=== PATIENT | female | born 1985 | race Two or more races ===

== ENCOUNTER → 2020-07-29 | Outpatient (CLI) | payer SELFPAY ==
[~2020-07-29] MED LIST: FOLI0.8C PO; HYDR25TA PO; PREN1TAB58 PO
== END ==
LOC: LAB 14:09
PROVIDERS: ATTEND Obstetrics & Gynecology
DX: Z01.812 Encounter for preprocedural laboratory examination (principal); Z20.828 Contact with and (suspected) exposure to other viral communicable diseases
CPT/HCPCS: U0003

== ENCOUNTER → 2020-08-17 | Outpatient (CLI) | payer SELFPAY ==
[2020-08-13 14:31] VITALS: BP 107/64
[~2020-08-17] MED LIST changes: +DOCU-109 PO; +FERR325T14 PO; +IBUP-1060 PO; +OXYC1TAB15 PO
[2020-08-17 12:23] LABS: HEMATOCRIT 25.8 % (36.0-47.0); HEMOGLOBIN 8.7 g/dL (12.0-15.5); RED BLOOD COUNT 2.8 x10^6/uL (3.50-5.40); RED CELL DISTRIBUTION WIDTH 15.9 % (11.5-14.5); WHITE BLOOD COUNT 10.8 x10^3/uL (4.0-11.0)
== END ==
LOC: LAB 11:39
PROVIDERS: ATTEND Obstetrics & Gynecology
DX: Z39.2 Encounter for routine postpartum follow-up (principal)
CPT/HCPCS: 36415; 85027